=== PATIENT | female | born 1965 | race Caucasian/White ===

== ENCOUNTER 2017-10-31 16:33 | Inpatient (IN) | payer OTHER ==
[~2017-10-31] VITALS: Ht 165.1 cm; Wt 48.1 kg
[~2017-10-31 16:33] MED LIST: ALBU8.5H8 INH; ARIP5TAB10 PO; AZAT50TA PO; BACI28.42 TP; BIFI1CAP PO; Buspirone Hcl PO; CALC-20 PO; CARB-103 PO; CIPR2.5D OP; CIPRO 0.3% EACH EAR; CLIN300C11 PO; CLON0.1T PO; DESV100T PO; DIPH28.33 TP; DOCO2CRE TP; EYE EACH EAR; FLUO30CR3 TP; HYDR20CR3 TOP; HYDR25CA PO; HYDR50CA5 PO; IBUP-1953 PO; IBUP-1957 PO; IRON-16 PO; LEVO88TA5 PO; MINO60SO TP; MULT-24 PO; NEOM10DR11 EACH EAR; NEOM14CR4 TP; NICO-672 TP; OFLO5DRO3 OP; OFLO5DRO5 EACH EAR; PANT20TA2 PO; PANT20TA3 PO; PRED10TA PO; PRED20TA PO; PRED5DRO16 EACH EAR; PRED5DRO16 OP; PRED5SOL PO; TRAZ-144 GT; TRAZ-144 PO; TRAZ-147 PO; [UNRECOGNIZED DRUG - CODE] OP; calcium PO
--- NOTE | 2017-10-31 17:00 | NUR ---
PREADMISSION Pt 52 y/o female received in intake office. Pt states came from home and lives with sister. Pt alert and oriented to name, place, and time. Perrla. Skin warm and dry to touch. Respirations even and unlabored. Pt appears disheveled with hair uncombed. Pt with tearful episodes. Pt was seen by MD. Pt started on prn ativan. VS wnl: t=98.0 R=16, P=105, IP=725/81 O2=96%@RA. Initial ciwa=4. Pt states had last drink 1 shot of vodka prior to arriving to intake office. Educated pt on unit rules with acknowledgement.
--- NOTE | 2017-10-31 17:19 | NUR ---
ADMISSION Pt 52 y/o female received in intake office. Pt states came from home and lives with sister. Pt alert and oriented to name, place, and time. Perrla. Skin warm and dry to touch. Respirations even and unlabored. Pt appears disheveled with hair uncombed. Pt with tearful episodes. Pt was seen by MD. Pt started on prn ativan. VS wnl: t=98.0 R=16, P=105, AJ=913/81 O2=96%@RA. Initial ciwa=4 with c/o nausea. Pt states had last drink 1 shot of vodka prior to arriving to intake office. Pt stated attends AA and NA and has a sponsor. Pt states on sobriety for 1 year and relapsed 3-4 days ago. Pt stated Kari as her interal motivator. Oriented pt to room and unit. Bed on lowest position with side rails x2 up for safety. Call light within reach. Pt with home medications. Pt states was very stressed recently which caused the relapse and would like to get help immediately. substance history: vodka po 6 shots x 4 days. Last took 1 shot prior to admission 10/31/17. total =41 years. medical hx: hypothyroidism, depression, anxiety tx hx: [facility] 2017
[2017-10-31] MEDS ORDERED: DESV50TA PO (17:45)
[2017-10-31] MEDS ORDERED: AZAT50TA18 PO (17:46)
[2017-10-31] MEDS ORDERED: TRET20CR TP (17:47)
[2017-10-31] MEDS ORDERED: BUSP30TA2 PO (17:54)
[2017-10-31] MEDS ORDERED: diphenhydrAMINE 50 MG CAPSULE PO PRN (18:15)
[2017-10-31] MEDS ORDERED: CLONIDINE HCL 0.1 MG TABLET PO PRN (18:15)
[2017-10-31] MEDS ORDERED: MIRALAX 17 GM POWD.PACK PO PRN (18:15)
[2017-10-31] MEDS ORDERED: MAG HYDROX/AL HYDROX/SIMETH 30 ML LIQUID UDC PO PRN (18:15)
[2017-10-31] MEDS ORDERED: IBUPROFEN 400 MG TABLET PO PRN (18:15)
[2017-10-31] MEDS ORDERED: LOPERAMIDE HCL 2 MG CAPSULE PO PRN ×2 (18:15)
[2017-10-31] MEDS ORDERED: LORAZEPAM 2 MG/1 ML VIAL IM PRN (18:15)
[2017-10-31] MEDS ORDERED: THIAMINE HCL 200 MG/2 ML VIAL IM ONE (18:15)
[2017-10-31] MEDS ORDERED: LORAZEPAM 1 MG TABLET PO PRN (18:15)
[2017-10-31] MEDS ORDERED: MAGNESIUM HYDROXIDE 30 ML LIQUID UDC PO PRN (18:15)
[2017-10-31] MEDS ORDERED: IBUPROFEN 600 MG TABLET PO PRN (18:30)
[2017-10-31] MEDS ORDERED: PANTOPRAZOLE SODIUM 40 MG TABLET.DR PO PRN (18:30)
[2017-10-31 18:33] LABS: *AMPHETAMINE, URINE NEGATIVE (NEGATIVE); *BARBITURATE, URINE NEGATIVE (NEGATIVE); *CANNABINOID, URINE NEGATIVE (NEGATIVE); *COCCAINE, URINE NEGATIVE (NEGATIVE); *OPIATE, URINE NEGATIVE (NEGATIVE); *PHENCYCLIDINE SCREEN,URINE NEGATIVE (NEGATIVE)
[2017-10-31 18:35] LABS: *URINE HCG, QUAL NEGATIVE (NEGATIVE)
[2017-10-31] MEDS: ONDANSETRON ODT 4 MG TAB.RAPDIS SL PRN (18:35)
--- NOTE | 2017-10-31 18:40 | NUR ---
PRN Pt states feels nauseated. Zofran odt prn per MD order given and tolerated well.
--- NOTE | 2017-10-31 18:58 | NUR ---
END OF SHIFT Pt 52 y/o female admitted for etoh withdrawal. Pt alert and oriented to name, place, and time. Perrla. Skin warm and dry to touch. Respirations even and unlabored. Pt appears disheveled with hair uncombed. Encouraged to maintain hygiene. Pt isolative to room every since admission. Pt was seen by MD started on prn ativan. Last ciwa=4. Pt was given zofran odt prn per MD order for c/o nausea. Bed on lowest position with side rails x2 up for safety. Call light within reach.
--- NOTE | 2017-10-31 19:10 | NUR ---
Start of Shift Patient Received. Patient is noted in bed sleeping but easily aroused to verbal stimuli. Breathing even and non labored. Per endorsement, patient was admitted today for recent relapse of 4 days. Patient was placed on PRN medications for increased signs and symptoms of withdrawal. Patient was given PRN Zofran for increased nausea. Last noted CIWA 4. All needs attended to promptly. Will continue plan of care as ordered.
[2017-10-31 20:09] LABS: BASOPHILS # (AUTO) 0.1 K/uL (0.0-8.0); BASOPHILS % (AUTO) 1.4 % (0.0-2.0); EOSINOPHILS # (AUTO) 0.6 K/uL (0.0-0.7); EOSINOPHILS % (AUTO) 10.1 % (0.0-7.0); HEMATOCRIT 35.5 % (31.2-41.9); HEMOGLOBIN 12.4 g/dL (10.9-14.3); LYMPHOCYTES # (AUTO) 1.9 K/uL (20.0-40.0); LYMPHOCYTES % (AUTO) 32.8 % (20.5-51.5); MEAN CORPUSCULAR HEMOGLOBIN 30.5 uug (24.7-32.8); MEAN CORPUSCULAR HGB CONC 35 g/dL (32.3-35.6); MONOCYTES # (AUTO) 0.5 K/uL (2.0-10.0); MONOCYTES % (AUTO) 7.9 % (0.0-11.0); NEUTROPHILS # (AUTO) 2.8 K/uL (1.8-8.9); NEUTROPHILS % (AUTO) 47.8 % (38.5-71.5); PLATELET COUNT (AUTO) 289 K/uL (179-408); RED BLOOD CELL COUNT(AUTO) 4.08 MIL/uL (3.63-4.92); WHITE BLOOD COUNT (AUTO) 5.8 K/uL (3.8-11.8)
[2017-10-31 20:13] LABS: BILIRUBIN,TOTAL 0.2 mg/dL (0.2-1.0); CREATININE 0.9 mg/dL (0.6-1.3); MAGNESIUM 2.1 mg/dL (1.8-2.4); POTASSIUM 3.7 mmol/L (3.5-5.1); TOTAL PROTEIN, SERUM 7.1 g/dL (6.4-8.2)
[2017-10-31 20:24] LABS: THYROID STIMULATING HORMONE 4.062 mIU/mL (0.358-3.740)
[2017-10-31 20:35] VITALS: BP 121/71
[2017-10-31] MEDS: LORAZEPAM 1 MG TABLET PO PRN (20:40)
--- NOTE | 2017-10-31 20:40 | NUR ---
PRN Medication Administration Patient is noted with increased anxiety, agitation, tremulous, verbalizing light sensitivity, and increased itching to palms and bottoms of feet. CIWA noted to be 18. PRN Ativan 2mgn administered. Will continue to monitor.
--- NOTE | 2017-10-31 21:40 | NUR ---
PRN medication Reassessment Patient is noted in bed sleeping. Breathing even and non labored. No signs of restlessness or discomfort noted. PRN Ativan 2mg noted to be effective. Will continue to monitor.
[2017-11-01] VITALS (7 sets, daily range): BP systolic 121–139; BP diastolic 71–86
[2017-11-01] MEDS: LORAZEPAM 1 MG TABLET PO PRN ×2 (03:54→09:07)
--- NOTE | 2017-11-01 04:00 | NUR ---
PRN Medication Administration Patient is noted awake and verbalizing increased anxiety, light sensitivity, itching throughout body, and noted to be tremulous. patient is also verbalizing increased heart burn. CIWA noted to be 14. PRN Ativan 2mg and Maalox administered will continue to monitor.
--- NOTE | 2017-11-01 05:00 | NUR ---
PRN Medication Reassessment Patient is noted in bed sleeping. Breathing even and non labored. No restlessness or discomfort noted. PRN Ativan noted to be effective. will continue to monitor.
[2017-11-01] MEDS: LEVOTHYROXINE SODIUM 88 MCG TABLET PO SCH (06:46)
--- NOTE | 2017-11-01 07:30 | NUR ---
START OF SHIFT Pt 52 y/o female admitted for etoh withdrawal. Pt received in room on bed with eyes closed resting, but easily arousable to name. Pt alert and oriented to name, place, and time. Perrla. Skin warm and moist to touch. Respirations even and unlabored. No hand tremors noted. Pt with anxiety noted this morning. Pt appears disheveled. Hair uncombed. Food wrappings scattered throughout the room. Encouraged to maintain hygiene. It was reported that pt slept for 10 hours last night. Last ciwa=14 reported at 0400. Pt is on a prn ativan. Bed on lowest position with side rails x2 up for safety. Call light within reach.
[2017-11-01] MEDS ORDERED: TUBERCULIN,PURIF.PROT.DERIV. 5 TU/0.1 ML TEST ID ONE (09:00)
[2017-11-01] MEDS: ONDANSETRON ODT 4 MG TAB.RAPDIS SL PRN (09:04)
[2017-11-01] MEDS: FOLIC ACID 1 MG TABLET PO SCH (09:07)
[2017-11-01] MEDS: MULTIVITAMINS,THERAPEUTIC TABLET PO SCH (09:07)
[2017-11-01] MEDS: THIAMINE HCL 100 MG TABLET PO SCH (09:07)
--- NOTE | 2017-11-01 09:11 | NUR ---
PRN Pt states feels nauseated. Zofran odt prn per MD order given and tolerated well.
--- NOTE | 2017-11-01 09:12 | NUR ---
PRN Pt with ciwa=13. Pt with sweats, anxious, agitated, nauseated, and very restless. Ativan 2 mg po prn per MD order given and tolerated well.
--- NOTE | 2017-11-01 09:28 | NUR ---
PRN TODD Pt stated she vomitted in the toilet and flushed it unwitnessed. Zofran odt prn ineffective.
[2017-11-01] MEDS: ONDANSETRON 4 MG/2 ML VIAL IM PRN ×2 (09:30→15:38)
--- NOTE | 2017-11-01 09:34 | NUR ---
PRN Pt with vomit episode unwitnessed. Pt states still feels nauseated. Zofran IM prn per MD order given and tolerated well.
--- NOTE | 2017-11-01 10:34 | NUR ---
PRN EVAL Pt denies any nausea or vomitting at this time.
[2017-11-01] MEDS ORDERED: MISCELLANEOUS MED PO SCH (13:30)
--- NOTE | 2017-11-01 14:40 | NUR ---
MEDICATION Pt wants to wait to take prestiq 1 tab daily po, until after the protonix takes in effect.
--- NOTE | 2017-11-01 14:40 | NUR ---
PRN Pt states feels nauseated. Protonix po prn per MD order given and tolerated well.
--- NOTE | 2017-11-01 15:43 | NUR ---
PRN Pt with unwitnessed vomit episode. Zofran IM prn per MD order given and tolerated well.
[2017-11-01] MEDS ORDERED: LORAZEPAM 1 MG TABLET PO PRN ×2 (15:45)
[2017-11-01] MEDS: DESVENLAFAXINE 50 MG PO SCH (16:05)
[2017-11-01] MEDS: busPIRone 10 MG TABLET PO SCH (16:05)
--- NOTE | 2017-11-01 16:43 | NUR ---
PRN SAVANAAL Pt denies any vomit episode at this time.
--- NOTE | 2017-11-01 16:56 | NUR ---
PRN Pt with ciwa=16. Ativan 2mg po prn per MD order given and tolerated well.
--- NOTE | 2017-11-01 17:56 | NUR ---
PRN EVAL pt with ciwa=4.
--- NOTE | 2017-11-01 18:27 | NUR ---
END OF SHIFT Pt 52 y/o female admitted for etoh withdrawal. Pt alert and oriented to name, place, and time. Perrla. Skin warm and dry to touch. Respirations even and unlabored. Pt appears disheveled with hair uncombed. Food wrappings and empty water bottles scattered throughout the room. Encouraged to maintain hygiene. Pt observed mostly isolative to room throughout the day. PT with tearful and anxious episodes today. Pt was seen by MD today. Pt medication compliant and tolerated well. No ASE noted. Pt is on a ativan prn. Ciwa=13@0800, 4@1200, and 16@1600. Pt with vomit episodes this morning and this afternoon. Bed on lowest position with side rails x2 up for safety. Call light within reach.
[2017-11-01] MEDS: HYDROXYZINE PAMOATE 25 MG CAPSULE PO PRN (18:46)
--- NOTE | 2017-11-01 18:47 | NUR ---
PRN Pt anxious and restless. Vistaril po prn per MD order given and tolerated well.
--- NOTE | 2017-11-01 19:30 | NUR ---
START OF SHIFT Received 52 year old female patient admitted don 10/31/17 for ETOH withdrawal. Pt is alert and oriented x4. Pt is not on a taper but has PRN medications available. Pt reports anxiety, restlessness, dyspepsia, appetite loss, headache and difficulty falling asleep. Per endorsement, she received PRN Ativan, Zofran and Vistaril. Last CIWA: 16 at 1600. Breathing is even and unlabored, safety measures in place. Will monitor.
--- NOTE | 2017-11-01 19:47 | NUR ---
PRN REASSESSMENT Pt reports medication was effective. Pt reports decrease in anxiety but still complains of restlessness. Will monitor.
[2017-11-01] MEDS: ACETAMINOPHEN 325 MG TABLET PO PRN (21:00)
[2017-11-01] MEDS: TRAZODONE 100 MG TABLET PO PRN (21:01)
[2017-11-01] MEDS: ARIPIPRAZOLE 5 MG TABLET PO SCH (21:01)
--- NOTE | 2017-11-01 21:01 | NUR ---
PRN TYLENOL/TRAZODONE Pt complains of headache 12/14. Pt also complains of difficulty sleeping. PRN Tylenol and Trazodone administered as ordered. Breathing even and unlabored, safety measures in place. Will monitor effectiveness.
--- NOTE | 2017-11-01 22:01 | NUR ---
PRN REASSESSMENT Medications effective. Pt lying in bed with eyes closed noted to be asleep. Breathing is even and unlabored, safety measures in place. Will monitor.
--- NOTE | 2017-11-02 | NUR ---
VITALS REFUSED, CIWA DEFERRED 0000 vitals refused d/t pt reports difficulty sleeping at night. CIWA deferred, pt noted with eyes closed and is asleep. Breathing even and unlabored, safety measures in place. Will monitor.
--- NOTE | 2017-11-02 04:00 | NUR ---
VITALS REFUSED, CIWA DEFERRED 0400 vitals refused d/t pt reports difficulty sleeping at night. CIWA deferred, pt noted with eyes closed and is asleep. Breathing even and unlabored, safety measures in place. Will continue to monitor.
[2017-11-02] MEDS: LEVOTHYROXINE SODIUM 88 MCG TABLET PO SCH (06:51)
--- NOTE | 2017-11-02 07:16 | NUR ---
END OF SHIFT Pt is a 52 year old female patient admitted on 10/31/17 for ETOH withdrawal. She remains alert and oriented x4. Pt had reports of anxiety, restlessness, dyspepsia, appetite loss, headache and difficulty falling asleep. Pt requested to drink milk to relieve her dyspepsia. Pt reported effectiveness. At 2100 she received PRN Trazodone and Tylenol. She slept a total of 9 hrs, Intake: 500mL, Void: x2, BM:0, CIWA:6 at 2000. Breathing is even and unlabored, safety measures in place. Endorsed to AM shift.
--- NOTE | 2017-11-02 07:40 | NUR ---
START OF SHIFT Pt is a 52 year old female patient admitted on 10/31/17 for ETOH withdrawal. Pt not on taper, only PRN Ativan. She is awake, alert and oriented x4. Pt had reports of anxiety, restlessness, nausea, and appetite loss. PRN last night Trazodone and Tylenol. She slept a total of 9 hrs. Last CIWA:6 at 2000. Will continue to encourage pt to attend groups to learn/develop new copings kills to prevent relapse. FULL CODE, NKDA. Safety measures in the place: Call light within reach, bed in the lowest position and locked, side rails up x2. Will continue to closely monitor s/s of withdrawal.
[2017-11-02 08:03] VITALS: BP 120/65
[2017-11-02] MEDS: MULTIVITAMINS,THERAPEUTIC TABLET PO SCH (08:11)
[2017-11-02] MEDS: THIAMINE HCL 100 MG TABLET PO SCH (08:11)
[2017-11-02] MEDS: busPIRone 10 MG TABLET PO SCH ×2 (08:11→16:29)
[2017-11-02] MEDS: DESVENLAFAXINE 50 MG PO SCH (08:11)
[2017-11-02] MEDS: FOLIC ACID 1 MG TABLET PO SCH (08:11)
[2017-11-02] MEDS: HYDROXYZINE PAMOATE 25 MG CAPSULE PO PRN (09:56)
--- NOTE | 2017-11-02 09:57 | NUR ---
PRN VISTARIL 25 MG PO FOR ANXIETY.
--- NOTE | 2017-11-02 10:55 | NUR ---
REASSESS VISTARIL- PT REPORTS ANXIETY IMPROVED AND SHE FEELS MUCH BETTER. MEDICATION EFFECTIVE.
[2017-11-02 12:00] VITALS: BP 116/76
[2017-11-02 12:06] LABS: HEPATITIS B SURFACE AG Negative (Negative)
[2017-11-02 16:00] VITALS: BP 161/70
--- NOTE | 2017-11-02 16:45 | NUR ---
PRN CATAPRES 0.1MG PO FOR ELEVATED BP, 161/70, HR 62. PT ADMITS TO BEING ANXIOUS AND DECLINES PRN VISTARIL AT THIS TIME.
[2017-11-02 17:43] VITALS: BP 120/60
--- NOTE | 2017-11-02 17:44 | NUR ---
REASSESS CATAPRES- BP IMPROVED 120/60, HR 58. PT REPORTS HER ANXIETY MUCH BETTER.
--- NOTE | 2017-11-02 18:33 | NUR ---
End of Shift Pt is a 52 year old female patient admitted on 10/31/17 for ETOH withdrawal. Pt not on taper, completed PRN Ativan. She is awake, alert and oriented x4. Pt emotional today, episodes of being tearful, anxious and crying over discharge plans. Pt for discharge tomorrow. PRN medications today; Vistaril and Catapres. Last CIWA 7. Encouraged pt to attend groups to learn/develop new copings kills to prevent relapse. She attended all group therapies today. FULL CODE, NKDA. Adequate PO fluid intake 2661 ml, void X 5, no BM. Safety measures in the place: Call light within reach, bed in the lowest position and locked, rails up x2. Will continue to closely monitor s/s of withdrawal. Endorse to PM shift.
[2017-11-02] MEDS ORDERED: CLON0.1T14 PO (18:51)
[2017-11-02] MEDS ORDERED: HYDR-3895 PO (18:51)
[2017-11-02] MEDS ORDERED: PANT40TA2 PO (18:51)
[2017-11-02] MEDS ORDERED: IBUP-1955 PO (18:51)
[2017-11-02] MEDS ORDERED: ARIP5TAB10 PO (18:51)
[2017-11-02] MEDS ORDERED: BUSP10TA3 PO (18:51)
[2017-11-02] MEDS ORDERED: Levothyroxine Sodium PO (18:51)
[2017-11-02] MEDS ORDERED: TRAZ-147 PO (18:51)
--- NOTE | 2017-11-02 19:30 | NUR ---
START OF SHIFT Pt is a 52 year old female admitted for ETOH withdrawal. Pt is not on a scheduled taper, completed PRN Ativan and is scheduled for DC tomorrow. She is A/A/O X 4. Pt received in bed. Pt c/o feeling light headed,encouraged to stay in bed. Last CIWA 7. Pt is FULL CODE, NKDA. Adequate PO fluid intake encouraged. Safety measures in the place. Call light within reach, bed in the lowest position and locked, rails up x2. Will continue to monitor.
[2017-11-02 20:00] VITALS: BP 132/77
[2017-11-02] MEDS: ARIPIPRAZOLE 5 MG TABLET PO SCH (20:29)
[2017-11-02] MEDS: ACETAMINOPHEN 325 MG TABLET PO PRN (20:30)
--- NOTE | 2017-11-02 20:30 | NUR ---
PRN TYLENOL GIVEN ORDERED FOR C/O HEADACHE 11/13.WILL MONITOR.
[2017-11-02] MEDS: TRAZODONE 100 MG TABLET PO PRN (20:39)
--- NOTE | 2017-11-02 20:39 | NUR ---
PRN TRAZODONE GIVEN FOR C/O INSOMNIA PER PT REQUEST.WILL MONITOR.
--- NOTE | 2017-11-02 21:40 | NUR ---
PRN REASSESSMENT Pt is calm and resting in bed with eyes closed;breathing is even and non labored;all safety measures are in place with call light within reach; will continue to monitor.
--- NOTE | 2017-11-03 | NUR ---
CIWA DEFERRED Pt is comfortably sleeping in bed;respirations 16, even and non labored,safety measures in place with call light within reach;v/s refused;will continue to monitor.
--- NOTE | 2017-11-03 04:00 | NUR ---
CIWA DEFERRED Pt is comfortably sleeping in bed;respirations 16, even and non labored,safety measures in place with call light within reach;v/s refused;will continue to monitor.
--- NOTE | 2017-11-03 06:52 | NUR ---
END OF SHIFT Pt is a 52 year old female admitted for ETOH withdrawal. Pt is not on a scheduled taper, completed PRN Ativan and is scheduled for DC today. She is A/A/O X 4. Pt received in bed. PRN Trazodone and Tylenol were given and were effective. Last CIWA 7. Pt is FULL CODE, NKDA. Pt slept 6 hrs,fluid intake was 2287 mls,voided x 3 . Adequate PO fluid intake encouraged. Safety measures in the place: Call light within reach, bed in the lowest position and locked, rails up x2. Will continue to monitor.
[2017-11-03] MEDS: LEVOTHYROXINE SODIUM 88 MCG TABLET PO SCH (07:20)
--- NOTE | 2017-11-03 07:20 | NUR ---
START OF SHIFT : PATIENT IS A 52 YR OLD FEMALE ADMITTED TO [facility] ON 10/31/17 FOR A MEDICALLY SUPERVISED WITHDRAWAL FROM ALCOHOL ( VODKA). PATIENT IS ASLEEP IN BED AT THIS TIME, BREATHING EVEN AND UNLABORED. PATIENT SLEPT FOR 6 HOURS, LAST CIWA 7 , PRN TYLENOL AND TRAZODONE GIVEN ON PM SHIFT. PATIENT IS TO BE DISCHARGED TODAY. CONTINUE TO FOLLOW MD PLAN OF CARE.
[2017-11-03] MEDS: MULTIVITAMINS,THERAPEUTIC TABLET PO SCH (07:59)
[2017-11-03] MEDS: DESVENLAFAXINE 50 MG PO SCH (07:59)
[2017-11-03 08:00] VITALS: BP 117/70
[2017-11-03] MEDS: THIAMINE HCL 100 MG TABLET PO SCH (08:00)
[2017-11-03] MEDS: FOLIC ACID 1 MG TABLET PO SCH (08:00)
[2017-11-03] MEDS: busPIRone 10 MG TABLET PO SCH (08:00)
--- NOTE | 2017-11-03 08:50 | NUR ---
DISCHARGE NOTE: PATIENT SIGNED AND DATED ALL DC PAPERWORK, ALL BELONGINGS, MEDICATIONS AND PRESCRIPTIONS GIVEN TO PT. PT STATES NO SI/HI AT THIS TIME, VS STABLE 117/70, HR 60, O2 100% T 97.5. PATIENT AMBULATED OFF THE UNIT AT 0850.
== END 2017-11-03 08:50 | disposition home or self-care (01) | DRG 895 ==
LOC: SRC 16:33
PROVIDERS: ADMIT Internal Medicine; ATTEND Internal Medicine
PROC: HZ2ZZZZ Detoxification Services for Substance Abuse Treatment (ICD-10-PCS; principal; 2017-10-31)
PROC: HZ41ZZZ Group Counseling for Substance Abuse Treatment, Behavioral (ICD-10-PCS; 2017-11-02)
DX: F10.230 Alcohol dependence with withdrawal, uncomplicated (principal); M31.30 Wegener's granulomatosis without renal involvement; E03.9 Hypothyroidism, unspecified; F17.210 Nicotine dependence, cigarettes, uncomplicated; K29.20 Alcoholic gastritis without bleeding; Y90.9 Presence of alcohol in blood, level not specified; F41.9 Anxiety disorder, unspecified; Z81.1 Family history of alcohol abuse and dependence; F32.9 Major depressive disorder, single episode, unspecified; R73.9 Hyperglycemia, unspecified
CPT/HCPCS: 36415; 80307; 83735; 84443; 84703; 85025; 86592; 86705; 86803; 87340; A4663; G0480; J2405; J3411; Q0162